=== PATIENT | female | born 1980 | race Caucasian/White ===

== ENCOUNTER 2024-10-15 12:38 | Emergency (ER) | payer MEDICAID, SELFPAY ==
[2024-10-15] VITALS (8 sets, daily range): BP systolic 164–190; BP diastolic 85–105; PULSE 98–116; RESP 11–21; TEMP 36.6; O2SAT 98–100
--- NOTE | 2024-10-15 13:22 | ED.GENADUL_ITS ---
Discharge Plan Discharge Details Chief Complaint: Nk/Back Pain Clinical Impression: Acute left-sided back pain, Community acquired pneumonia, RODOLFO (acute kidney injury), Blood pressure elevated without history of HTN Primary Care Provider: Jakob Dunbar ED Provider: Carl Cope Home Meds and New Rx's Prescriptions: New amoxicillin 500 mg capsule 500 mg PO BID Qty: 10 0RF Continued insulin aspart U-100 [Novolog FlexPen U-100 Insulin] 100 unit/mL (3 mL) insulin pen 1 sliding scale dose subcut USEASDIRECTD zolpidem [Ambien] 5 mg tablet 5 mg PO .daily pm PRN cyclobenzaprine 10 mg tablet 10 mg PO Q12H furosemide [Lasix] 20 mg tablet 20 mg PO QAM PRN (Reason: edema) Discharge Instructions Additional Instructions: You were seen in the emergency department for your back pain. Your bedside ultrasound was concerning for the possibility of pneumonia for which you are receiving antibiotics that you should take as directed. As we discussed your kidneys were slightly damaged. Please touch base with your primary care provider to have your blood work repeated in the next 10 days. As we discussed, your blood pressure was elevated. In the setting of your diabetes this is concerning. Please follow-up with your primary care provider within the next week. As we discussed please return to the emergency department if you develop chest pain if you pass out develop any weakness in your arms or legs or if you take any falls. For your pain please take medications as follows: 1. Take acetaminophen (Tylenol), 1,000 mg (two 500 mg tabs) every 6 hours HPI General Date/Time Provider Initiated Documentation: 10/15/24 12:41 . HPI Narrative: MDM This is an overall well-appearing tachycardic but normothermic diabetic 43-year-old female with cough left-sided upper back pain concerning for pneumonia on POCUS for which patient will undergo chest x-ray. D-dimer will also be ordered as patient is not PERC negative and she is having some shortness of breath. Patient is neurologically intact so I am not suspicious for CVA. No fevers to suggest increased risk of final epidural abscess and patient is not an IV drug user. No anticoagulation no recent spinal instrumentation to suggest increased risk for spinal epidural hematoma. No rash to back to suggest zoster. Aortic outflow track less than 4 cm and no tearing quality to back pain so my suspicion is low for aortic dissection. Given tachycardia will obtain twelve-lead ECG. No rash to back to suggest zoster. Nontender abdomen so my suspicion acute intra-abdominal pathology. I considered CVA however the patient is neurologically intact so I do not feel she would be a candidate for lytics. No red flags for back pain. Specifically no loss of bowel or bladder control to suggest cauda equina syndrome. 3:30 PM Lab work notable for leukocytosis. Mild anemia. No thrombocytopenia. D-dimer just over 500 however will tolerate up to 1000 based on years criteria. Undetectable troponin. Patient did have elevated creatinine at 1.6 mg/dL. In the [facility] system she has had elevated creatinine levels in the past greater than 2 and has a history of CKD which could be secondary to her diabetes. Of note she is markedly hypertensive with her initial blood pressure of 190/101. Her vital signs in the [facility] system show that she has had several episodes of elevated blood pressure and she is not infrequently tachycardic. Her tachycardia is nearly resolved. She has received liter of fluids. Will repeat a CBC to ensure that her renal function is not worsening. Most recent blood pressure is 177/86. 3:55 PM Patient had persistent left upper back pain. Her heart rate improved but she was still mildly tachycardic. She also has a persistently elevated blood pressure. Will repeat a Chem-7 to ensure her renal function is not worsening in the setting of her type 1 diabetes. I advised her to follow-up with primary c are provider within the week. Will treat her with 5 days of amoxicillin for community-acquired pneumonia. Advised that if she develop fevers could not eat or drink as result of nausea vomiting develop any chest pain or if she passed out that she should return to the emergency department. Patient will be signed out to my colleague Dr. Li. She will be written for an empiric trial of discharge with expectant outpatient management. If the patient's renal function worsens or if she has any other concerns patient may be a candidate for hospitalization. Patient requested a dose of ketorolac however given her renal function and acute kidney injury will defer NSAIDs at this point. Patient is overall well-appearing so anticipate she will be appropriate for discharge. Of note she is persistently tachycardic in the [facility]. She also has had blood pressure readings in the 160s in the past. She is not currently on any antihypertensive medications. She is on furosemide but has no echocardiogram in our system nor the [facility] E[facility]. She certainly does not appear volume overloaded so I am not suspicious for acute heart failure. HPI The patient presents for evaluation of back pain. She reports experiencing back pain localized between her shoulder blades, which started 2 nights ago. She has a history of fractures from T3 to T11 vertebrae, with the first fracture occurring 2 months prior to her awareness. She estimates having fractured her back approximately 4 times, but the exact number is uncertain. Despite these incidents, she has not undergone any surgical interventions. She also reports a diagnosis of osteopenia. She reports no recent falls or injuries. She experienced difficulty breathing upon awakening today, describing it as painful. She reports no associated nausea, vomiting, or rash on her back. She has been avoiding coughing due to the associated pain. She is not currently on any anticoagulant therapy. Patient reports that she has a chest wall port in place secondary to difficult access and events of DKA in the past. She is a light smoker, smoking maybe a pack a week and often not finishing a whole cigarette. She does not consume alcohol regularly and reports no intravenous drug use. Review of systems positive for cough. Negative for nausea, vomiting, rash on her back. Exam General: Well-appearing in no acute distress speaking in complete sentences. Head: Normocephalic, atraumatic. Eye: Extraocular eye movements intact. No conjunctival injection. No scleral icterus. Ear, nose, mouth, throat: Grossly normal inspection. Normal voice, handling secretions normally. Neck: Trachea midline. No midline cervical spinal tenderness. Cardiovascular: Well-perfused distal extremities. Rapid regular rate. Back: No midline thoracic, lumbar spinal tenderness. Patient does have some left-sided paraspinal muscle tenderness. Respiratory: Nonlabored respiration. Left-sided trace rhonchi. Otherwise clear lungs bilaterally Gastrointestinal: Nondistended abdomen. Musculoskeletal: No edema. Moving all 4 extremities spontaneously. Skin: Normal for age and race, grossly normal temperature and turgor. No acute rash. Neurologic: Alert and appropriate, no apparent acute deficits. 5 out of 5 bilateral upper and lower extremity strength. Psychiatric: Mood and manner are appropriate. Grooming and personal hygiene are appropriate. Related Data Home Medications ?Medication ?Instructions ?Recorded ?Confirmed amoxicillin 500 mg capsule 500 mg PO BID #10 caps 10/15/24 cyclobenzaprine 10 mg tablet 10 mg PO Q12H 10/15/24 10/15/24 furosemide 20 mg tablet (Lasix) 20 mg PO QAM PRN edema 10/15/24 10/15/24 insulin aspart U-100 100 unit/mL 1 sliding scale dose subcut 10/15/24 10/15/24 (3 mL) subcutaneous pen (Novolog USEASDIRECTD FlexPen U-100 Insulin aspart) zolpidem 5 mg tablet (Ambien) 5 mg PO .daily pm PRN 10/15/24 10/15/24 Previous Rx's ?Medication ?Instructions ?Recorded amoxicillin 500 mg capsule 500 mg PO BID #10 caps 10/15/24 General Stated Complaint: Nk/Back Pain DARRELL: 2 Course Vital Signs Vital signs: Vital Signs Temperature 36.6 C 10/15/24 12:44 Pulse 114 H 10/15/24 12:44 Respiratory Rate 20 10/15/24 12:44 Blood Pressure 190/101 H 10/15/24 12:44 Pulse Oximetry 98 10/15/24 12:44 Temperature 36.6 C 10/15/24 12:44 Pulse 114 H 10/15/24 12:44 Respiratory Rate 20 10/15/24 12:44 Blood Pressure 190/101 H 10/15/24 12:44 Blood Pressure Position Sitting 10/15/24 12:44 Pulse Oximetry 98 10/15/24 12:44 Oxygen Delivery Method Room Air 10/15/24 12:44 Oxygen Flow Rate 0 10/15/24 12:44 Medical Decision Making Quality:SDOH Health Related Social Needs: No Data to Display PFSH All Active Problems (Updated 10/15/24 @ 16:03 by Carl Cope MD) Blood pressure elevated without history of HTN (Acute) RODOLFO (acute kidney injury) (Acute) Community acquired pneumonia (Acute) Acute left-sided back pain (Acute) Social History Smoking risk assessment performed?: No POCUS Exam (ED) Limited Cardiac Exam DATE OF EXAM: 10/15/24 TIME OF EXAM: 13:25 PROVIDER THAT PERFORMED THE STUDY: Carl Cope IS THIS A REPEAT EXAM DURING THIS ENCOUNTER: no REASON FOR EXAM: Chest pain VISUALIZED STRUCTURES: Four Chambers, Left ventricle, LVOT and Other structure: Lungs VIEW OBTAINED: Apical 4-Chamber, Parasternal long-axis and Subxiphoid PERTINENT FINDINGS/IMPRESSION: No pericardial effusion and No RV dilation DIFFERENTIAL DIAGNOSES: Aortic outflow track less than 4 cm, good squeeze, RV less than LV, no significant pericardial effusion. Left-sided B-lines Exam complete
--- NOTE | 2024-10-15 13:30 | RT.EKG_ITS ---
APPROVED REPORT Exam: Resting ECG Reason for Exam: tachy Patient Location: E HR:113 bpm ECG Measurements Heart Rate 113 AXIS [place] 147 P 63 QRSd 84 QRS 66 QT 311 T 26 QTc 426 Conclusion Sinus tachycardia...rate> 99 No Occlusion NM
[2024-10-15 13:53] LABS: Abs Immature Grans 0.07 10^3/uL (0.0-0.06); Absolute Basophil Count 0.09 10^3/uL (0.0-0.2); Absolute Eosinophil Count 0.51 10^3/uL (0.0-0.7); Absolute Lymphocyte Count 2.83 10^3/uL (1.2-3.4); Absolute Monocyte Count 0.81 10^3/uL (0.1-0.8); Basophils % 0.7 %; Eosinophils % 4.2 %; HCT 33.8 % (36.0-46.0); HGB 10.8 g/dL (11.2-15.7); Immature Grans % 0.6 %; Lymphocytes % 23.1 %; MCH 28.6 pg (27.0-33.0); MCV 89 fL (80-95); Monocytes % 6.6 %; Neutrophils % 64.8 %; Platelet Count 390 10^3/uL (130-400); RBC 3.78 10^6/uL (3.93-5.22); RDW 12.9 % (11.7-14.6); RDW-SD 41.9 fL; WBC 12.23 10^3/uL (4.4-10.8)
[2024-10-15 13:55] LABS: Absolute Neutrophil Count 7.93 10^3/uL (1.2-6.7)
[2024-10-15] MEDS: Normal Saline 500 ML 1000 ML IV ×2 (14:02→14:42)
[2024-10-15 14:11] LABS: Anion Gap 4.4 mmol/L (3-11); BUN 27 mg/dL (7-18); CO2 28.6 mmol/L (21.0-32.0); CREATININE 1.6 mg/dL (0.55-1.02); Calcium 9.3 mg/dL (8.5-10.1); Chloride 104 mmol/L (98-107); Estimated GFR 41.04 (mL/min/1.73m2); Glucose 109 mg/dL (74-106); Potassium 4.5 mmol/L (3.5-5.1); Sodium 137 mmol/L (136-145)
--- NOTE | 2024-10-15 14:12 | DI.RAD_ITS ---
Exam(s) XR CHEST 2V PA LATERAL EXAM: XR CHEST 2V PA LATERAL CLINICAL HISTORY: Left-sided back pain. TECHNIQUE: 2D digital imaging was performed. COMPARISON: No exams were available for comparison FINDINGS: 2 views: Distal tip of right-sided Port-A-Cath is in good position in the lower SVC. Heart size is normal. The mediastinum is not widened. Lungs are clear. No infiltrates nor pleural effusions. IMPRESSION: No acute pulmonary findings. DATA REPOSITORY: RADIATION DOSE DELIVERED:
[2024-10-15 14:15] LABS: Troponin I < 4 ng/L (<or=51)
[2024-10-15 14:20] LABS: HCG Qual (Serum) Negative
[2024-10-15 14:25] LABS: D-Dimer 503 ng/mlFEU (<500)
--- NOTE | 2024-10-15 14:42 | DI.VRAD_ITS ---
PROCEDURE INFORMATION: Exam: XR Chest Exam date and time: 10/15/2024 2:12 PM Age: 43 years old Clinical indication: Other: Left-sided back pain TECHNIQUE: Imaging protocol: Radiologic exam of the chest. Views: 2 views. COMPARISON: No relevant prior studies available. FINDINGS: Tubes, catheters and devices: Right chest port catheter tip terminates near the cavoatrial junction. Lungs: Unremarkable. No consolidation. Pleural spaces: Unremarkable. No pleural effusion. No pneumothorax. Heart/Mediastinum: Unremarkable. No cardiomegaly. Bones/joints: Unremarkable. IMPRESSION: No acute findings. Dictated and Authenticated by: Clement Castaneda MD. Orderin Pirsca Henry MD
[2024-10-15 16:16] LABS: Anion Gap 5.6 mmol/L (3-11); BUN 25 mg/dL (7-18); CO2 26.4 mmol/L (21.0-32.0); CREATININE 1.5 mg/dL (0.55-1.02); Chloride 101 mmol/L (98-107); Estimated GFR 44.34 (mL/min/1.73m2); Glucose 269 mg/dL (74-106); Potassium 5.3 mmol/L (3.5-5.1); Sodium 133 mmol/L (136-145)
--- NOTE | 2024-10-15 16:21 | W.EDPROG ---
Date of service: 10/15/24 Time of Service: 16:23 Medical Decision Making Care assumed from outgoing provider. Final disposition was pending repeat creatinine level. The creatinine level has not worsened and slightly improved to 1.5. The potassium was also noted to be slightly elevated at 5.3, but I believe that this is likely erroneous value secondary to the difficult nature in which the blood draw occurred. Do not feel that the patient needs treatment for hyperkalemia. Recommend close follow-up with PCP and discharge instructions as discussed by Dr. Cope. Quality:[facility] Health Related Social Needs: No Data to Display Discharge Plan Disposition Patient Disposition: Home Condition: Stable Discharge Details Clinical Impression: Acute left-sided back pain, Community acquired pneumonia, RODOLFO (acute kidney injury), Blood pressure elevated without history of HTN Primary Care Provider: Jakob Dunbar ED Provider: Tevin Li Home Meds and New Rx's Prescriptions: New amoxicillin 500 mg capsule 500 mg PO BID Qty: 10 0RF Continued insulin aspart U-100 [Novolog FlexPen U-100 Insulin] 100 unit/mL (3 mL) insulin pen 1 sliding scale dose subcut USEASDIRECTD zolpidem [Ambien] 5 mg tablet 5 mg PO .daily pm PRN cyclobenzaprine 10 mg tablet 10 mg PO Q12H furosemide [Lasix] 20 mg tablet 20 mg PO QAM PRN (Reason: edema) Discharge Instructions Additional Instructions: You were seen in the emergency department for your back pain. Your bedside ultrasound was concerning for the possibility of pneumonia for which you are receiving antibiotics that you should take as directed. As we discussed your kidneys were slightly damaged. Please touch base with your primary care provider to have your blood work repeated in the next 10 days. As we discussed, your blood pressure was elevated. In the setting of your diabetes this is concerning. Please follow-up with your primary care provider within the next week. As we discussed please return to the emergency department if you develop chest pain if you pass out develop any weakness in your arms or legs or if you take any falls. For your pain please take medications as follows: 1. Take acetaminophen (Tylenol), 1,000 mg (two 500 mg tabs) every 6 hours
--- NOTE | 2024-10-15 16:22 | NUR.NOTE ---
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
[2024-10-15] MEDS: Heparin 500 UNITS/5 ML SYRINGE (16:39)
== END 2024-10-15 16:41 | disposition home or self-care (01) ==
PROVIDERS: Emergency Medicine; Emergency Provider Emergency Medicine; PCP Family Medicine
DX: J18.9 Pneumonia, unspecified organism (principal); M54.9 Dorsalgia, unspecified; N17.9 Acute kidney failure, unspecified; R03.0 Elevated blood-pressure reading, without diagnosis of hypertension; F17.210 Nicotine dependence, cigarettes, uncomplicated
CPT/HCPCS: 99284 ×2; 36415; 00123; 80048; 93005; 93308; 96360; 71046; 84484; 84703; 85025; 85379; 93010; J1642

== ENCOUNTER 2024-11-16 22:18 | Emergency (ER) | payer MEDICAID, SELFPAY ==
[2024-11-16 22:21] VITALS: BP 138/84; PULSE 102; RESP 18; TEMP 36.9; O2SAT 100
--- NOTE | 2024-11-16 22:41 | W.ED.GENAD ---
Discharge Plan Disposition Patient Disposition: Home Condition: Good Discharge Details Clinical Impression: Swollen lip Primary Care Provider: Jakob Dunbar ED Provider: Ruby Nieto Home Meds and New Rx's Prescriptions: New clindamycin HCl [Cleocin HCl] 150 mg capsule 450 mg PO TID 5 Days Qty: 45 0RF Continued oxazepam 15 mg capsule 15 mg PO ONCE lisinopril 20 mg tablet 20 mg PO DAILY insulin aspart U-100 [Novolog FlexPen U-100 Insulin] 100 unit/mL (3 mL) insulin pen 1 sliding scale dose subcut USEASDIRECTD cyclobenzaprine 10 mg tablet 10 mg PO Q12H Discharge Instructions Instructions: Cellulitis (Skin Infection), Adult ED, Insect Bites and Stings ED Additional Instructions: Your lower lip swelling may be from a reaction to a bug bite, however it is also possible the pimple nearby has caused an infection to spread. Your diabetes makes you higher risk for infections. Please take 25mg of Benadryl every 4-6 hours for lip swelling- this will help if it is a reaction to a bite. You also need to take clindamycin 450mg three times a day for the next give days- this will treat an infection if present. Call your primary care doctor in the morning to schedule an appointment for within the next 72 hours to followup on your visit here. Return to the emergency department if your symptoms worsen or if you develop new symptoms, including if your swelling spreads to both lips, involves your tongue or throat, if you have any difficultly breathing or swallowing, or if you have any other concerns. Referrals: Jakob Dunbar [Primary Care Provider] - [facility] General Mode of arrival: ambulatory. Date/Time Provider Initiated Documentation: 11/16/24 22:20. Limitations to Documentation: no limitations. Information obtained by: patient and family. HPI Narrative: 43yo F with hx of HTN, diabetes, glaucoma, presenting with lip tenderness and swelling that started about 4 hours prior to arrival. Spent the afternoon outside, thinks she may have been bitten by a bug near her lower lip but is not sure. On the drive home began to notice some pain and swelling in her right lower lip. This has continued to get worse over the past several hours. States that she often has signifcant swelling with minor bug bites and stings. She also reports a large zit just below her right lower lip that has been present for a few days; today squeezed it and 'a lot of pus and blood came out'. She has no hives or rash elsewhere. No swelling in her throat, tongue swelling, or difficulty swallowing. No shortness of breath, wheezing, chest pain, nausea, vomiting, or abdominal pain. No history of anaphalyxis. Did receive 'eye injections' for glaucoma yesterday. Started on lisinopril within the last month for hypertension. She is otherwise in her usual state of health. Related Data Home Medications ?Medication ?Instructions ?Recorded ?Confirmed cyclobenzaprine 10 mg tablet 10 mg PO Q12H 10/15/24 11/16/24 insulin aspart U-100 100 unit/mL 1 sliding scale dose subcut 10/15/24 11/16/24 (3 mL) subcutaneous pen (Novolog USEASDIRECTD FlexPen U-100 Insulin aspart) clindamycin HCl 150 mg capsule 450 mg (3 x 150 mg) PO TID 5 days 11/16/24 (Cleocin HCl) #45 caps lisinopril 20 mg tablet 20 mg PO DAILY 11/16/24 11/16/24 oxazepam 15 mg capsule 15 mg PO ONCE 11/16/24 11/16/24 Previous Rx's ?Medication ?Instructions ?Recorded clindamycin HCl 150 mg capsule 450 mg (3 x 150 mg) PO TID 5 days 11/16/24 (Cleocin HCl) #45 caps Allergies Allergy/AdvReac Type Severity Reaction Status Date / Time bupropion Allergy Headache Verified 11/16/24 22:41 sumatriptan (From Imitrex) Allergy Hives Verified 11/16/24 22:42 vancomycin AdvReac Hives Verified 11/16/24 22:43 General Stated Complaint: Allergic DARRELL: 3 Review of Systems Narrative: see HPI Exam Narrative Exam Narrative: General: Alert, well appearing, well nourished, in no acute distress. Head: Normocephalic, atraumatic Neck: Trachea midline, ?Neck supple. Facial & ENT: ?Focal swelling of far right side of lower lip. No intraoral swelling. MMM.? No oropharygeal lesions or exudate. 0.5cm Skin lesion just below right lower lip consistent with drained abscess/pimple, no palpable fluctuance and minimal surrounding erythema Cardiac: ?RRR, no murmurs appreciated Resp: No respiratory distress. CTAB. Extremities: ?No deformities.? No peripheral edema. No rash. Neurologic: GCS 15. ? Moves all extremities freely against gravity Course Vital Signs Vital signs: Vital Signs Temperature 36.9 C 11/16/24 22:21 Pulse 102 H 11/16/24 22:21 Respiratory Rate 18 11/16/24 22:21 Blood Pressure 138/84 11/16/24 22:21 Pulse Oximetry 100 11/16/24 22:21 Temperature 36.9 C 11/16/24 22:21 Temperature Source Oral 11/16/24 22:21 Pulse 102 H 11/16/24 22:21 Respiratory Rate 18 11/16/24 22:21 Respiratory Effort Normal, Non-Labored 11/16/24 22:24 Blood Pressure 138/84 11/16/24 22:21 Pulse Oximetry 100 11/16/24 22:21 Oxygen Delivery Method Room Air 11/16/24 22:21 Oxygen Flow Rate 0 11/16/24 22:21 Pain Level 5 11/16/24 22:21 Medical Decision Making 43yo F with hx of HTN, diabetes, glaucoma, presenting with lip tenderness and swelling that started about 4 hours prior to arrival. Spent the day outside prior to onset of symptoms and thinks she may have been bitten by an insect; also recently 'popped a zit' just below the swollen area. No other symptoms, otherwise feels well. Slightly tachycardiac on arrival to low 100's, vital signs otherwise reassuring. No respiratory distress or stridor. Very well appearing. On exam she has approximately 2cm of mild focal swelling to her far right lower lip, tender to palpation. Absolutely no swelling or tenderness to upper lip and no other facial swelling or tenderness. Intraoral exam without swelling of tongue or intraoral tissues. She also has a skin lesion just below the area of lip swelling consistent with a drained abscess/pimple. No palpable fluctuance or induration, does have slight erythema surrounding. No clear bite/sting. Clinically is most consistent with localized reaction i.e. to insect however given nearby drained abscess/pimple and diabetes must consider infection as well. Will treat with benadyrl and short course of clindamycin for potential cellulitis. No indication for labs or imaging at this time. Of note, she did also start ACEI recently for hypertension; given patient provided history and clinical exam is much less likely ACEI induced angioedema and would not advise holding medication at this time, instructed to discuss with PCP at followup visit. Given only mild swelling currently which developed over the course of over 4 hours, appropriate for discharge home with strict return precautions. Discussed the importance of returning to the emergency department immediately for any progression of swelling especially involvement of any new areas (tongue, throat, face, upper lip), and any sensation of throat tightness or difficulty breathing or swallowing. She was advised to followup closely with her PCP. Repeat vital signs reassuring. Discharged home; discharge instructions and return precautions were reviewed with patient who verbalized understanding. All questions were answered and she is in full agreement with the plan. Quality:SDOH Health Related Social Needs: No Data to Display PFSH All Active Problems (Updated 11/16/24 @ 22:42 by Ruby Nieto MD) Swollen lip (Acute) Social History Smoking/Tobacco Use Status: Former Tobacco Use Smoking risk assessment performed?: Yes Alcohol Intake: former
[2024-11-16] MEDS: diphenhydrAMINE 25 MG CAP 50 MG PO (22:45)
[2024-11-16] MEDS: Clindamycin 150 MG CAP 450 MG PO (22:46)
[2024-11-16 22:55] VITALS: PULSE 99; RESP 18; O2SAT 99
== END 2024-11-16 22:55 | disposition home or self-care (01) ==
PROVIDERS: Emergency Provider Student in an Organized Health Care Education/Training Program; PCP Family Medicine
DX: R22.0 Localized swelling, mass and lump, head (principal); E11.9 Type 2 diabetes mellitus without complications; I10 Essential (primary) hypertension
CPT/HCPCS: 99284; 99283